=== PATIENT | male | born 1965 | race Caucasian/White ===

== ENCOUNTER → 2016-09-21 | Outpatient (CLI) | payer BC, OTHER ==
[~2016-09-21] MED LIST: FLOM5CAP PO; LIPI20TA PO; MULT1TAB10 PO; OXYC1TAB23 PO; TRIC145T PO
[2016-09-21 19:02] LABS: CALCIUM OXALATE CRYSTALS SMALL
== END ==
LOC: M SMT 11:56
PROVIDERS: ATTEND Nurse Practitioner Women's Health
DX: Z01.812 Encounter for preprocedural laboratory examination (principal); N13.2 Hydronephrosis with renal and ureteral calculous obstruction

== ENCOUNTER → 2016-10-05 | Day surgery (SDC) | payer BC, OTHER ==
[~2016-10-05] VITALS: Ht 167.6 cm; Wt 86.2 kg
[~2016-10-05] MED LIST changes: +LIDOCAINE 2% INJ 100 MG/5 ML SDV (FOR ANES.) As Ordered ONE; +LR 1,000 ML IV SCH; +ONDANSETRON 4MG/2ML VIAL (J2405) IV PRN; +PERCOCET PO; +PROPOFOL 200 MG/20 ML VIAL As Ordered ONE; +fentaNYL 100 MCG/2 ML INJECTION (J3010) IV PRN
[2016-10-05 10:15] VITALS: BP 155/95
--- NOTE | 2016-10-05 11:19 | REP ---
Supine abdomen single AP view: There are no comparisons. There is a triangular-shaped 7 millimeter calcification projected between the L3 at L4 left transverse processes compatible with a left ureteral calculus. No other calcifications are identified. The bowel gas pattern is normal. Skeletal structures are otherwise unremarkable. Signed by Dax Mari MD 10/05/2016 11:02 A
--- NOTE | 2016-10-06 07:05 | RO ---
DATE OF PROCEDURE: 10/05/2016 PREOPERATIVE DIAGNOSIS: Left mid ureteral stone. POSTOPERATIVE DIAGNOSIS: Left mid ureteral stone. SURGERY PERFORMED: Left extracorporeal shockwave lithotripsy. SURGEON: Dr. Cristopher Cohen [employer]IOR [employer] TEAM LEAD: Rakesh Shepherd, PGY 3 ANESTHESIA: Monitored anesthesia care (MAC). COMPLICATIONS: None. ESTIMATED BLOOD LOSS: N/A. FINDINGS: Left mid ureteral stone 6 mm in diameter. HISTORY OF PRESENT ILLNESS: This is a 51-year-old male patient that has a left mid ureteral stone about 6 mm in diameter. He has consented for a left extracorporeal shockwave lithotripsy. PROCEDURE DESCRIPTION: In a patient in supine position after finding the stone with x-ray, we gave a total of 3000 shockwave lithotripsies at a power of 1-20. The patient tolerated well the procedure. The first 100 shockwave lithotripsies were done at a level of 1-5, the following 100 shockwave lithotripsies were done at a level of 6-10, the following 100 shockwave lithotripsies were done at a level of 11-15 and the final 2700 shockwave lithotripsies were done at a power of 16-20. The patient tolerated well the procedure. He will be going home today with an alpha mattie and Percocet for pain. He will followup at [facility] in about 2-3 weeks to see if he needs a second or third session of ESWL. There were no complications during surgery.
== END | disposition home or self-care (01) ==
LOC: M SDC 06:18
PROVIDERS: ATTEND Urology
DX: N20.1 Calculus of ureter (principal); I48.91 Unspecified atrial fibrillation; Z98.61 Coronary angioplasty status; I25.2 Old myocardial infarction; E11.9 Type 2 diabetes mellitus without complications; Z79.4 Long term (current) use of insulin; G47.30 Sleep apnea, unspecified; I10 Essential (primary) hypertension; E78.5 Hyperlipidemia, unspecified; Z88.0 Allergy status to penicillin; Z88.2 Allergy status to sulfonamides; Z88.5 Allergy status to narcotic agent; Z79.02 Long term (current) use of antithrombotics/antiplatelets; Z79.899 Other long term (current) drug therapy; I50.9 Heart failure, unspecified; Z87.891 Personal history of nicotine dependence; J45.909 Unspecified asthma, uncomplicated; Z95.1 Presence of aortocoronary bypass graft
CPT/HCPCS: 50590; 74000; J0690

== ENCOUNTER → 2016-10-26 | Outpatient (CLI) | payer BC, OTHER ==
[~2016-10-26] MED LIST changes: -LIDOCAINE 2% INJ 100 MG/5 ML SDV (FOR ANES.) As Ordered ONE; -LR 1,000 ML IV SCH; -ONDANSETRON 4MG/2ML VIAL (J2405) IV PRN; -PROPOFOL 200 MG/20 ML VIAL As Ordered ONE; -fentaNYL 100 MCG/2 ML INJECTION (J3010) IV PRN
--- NOTE | 2016-10-27 01:13 | REP ---
Clinical: Nephrolithiasis. Technique : Supine Abdominal radiograph. Findings: No obvious urinary tract calcifications are appreciated. However evaluation is somewhat limited due to overlying bowel gas. No bowel obstruction. No abnormal calcifications. Skeletal structures demonstrate age-related degenerative changes to the bilateral hips. Impression: No obvious urinary tract calcifications appreciated. Signed by Philip Miranda MD 10/27/2016 01:04 A
== END ==
LOC: M SMT 10:19
PROVIDERS: ATTEND Specialist
DX: N20.0 Calculus of kidney (principal)